=== PATIENT | female | born 1965 | race Caucasian/White ===

== ENCOUNTER → 2018-02-25 | Day surgery (SDC) | payer BC ==
[2018-02-23 16:21] VITALS: BMI 39.5
[~2018-02-25] MED LIST: LACTATED RINGERS 1,000 ML IV ONE; LIDOCAINE 1% 20 ML VIAL (10MG/ML) FOR IV START INTRADERMA ONE; LIDOCAINE 1% INJ 10MG/ML (20 ML MDV) ONE; PROPOFOL 10 MG/ML 20 ML VIAL IV ONE
--- NOTE | 2018-02-25 05:50 | P.GSHP ---
History of Present Illness H&P Date: 02/25/18 CHIEF COMPLAINT: GERD HISTORY OF PRESENT ILLNESS: The patient is a 52-year-old female who presents reports gastroesophageal reflux disease. Upper endoscopy was offered for further evaluation and management. PAST MEDICAL HISTORY: Please see list. PAST SURGICAL HISTORY: Please see list. MEDICATIONS: Please see list. ALLERGIES: Please see list. SOCIAL HISTORY: No illicit drug use FAMILY HISTORY: No reports of Crohn disease or ulcerative colitis. REVIEW OF ORGAN SYSTEMS: CONSTITUTIONAL: No reports of fevers or chills. GI: Denies any blood in stools or constipation. PHYSICAL EXAM: VITAL SIGNS: Stable GENERAL: Well-developed and pleasant in no acute distress. HEENT: No scleral icterus. Extraocular movements grossly intact. Moist buccal mucosa. NECK: Supple without lymphadenopathy. CHEST: Unlabored respirations. Equal bilateral excursions. CARDIOVASCULAR: Regular rate and rhythm. Distal 2+ pulses. ABDOMEN: Soft, nondistended. MUSCULOSKELETAL: No clubbing, cyanosis, or edema. ASSESSMENT: 1. Gastroesophageal reflux disease PLAN: 1. Recommend proceeding with an upper endoscopy Past Medical History Past Medical History: GERD/Reflux, Hypertension Additional Past Medical History / Comment(s): seasonal allergies History of Any Multi-Drug Resistant Organisms: None Reported Past Surgical History: Appendectomy, Back Surgery, Hysterectomy Additional Past Surgical History / Comment(s): Colonoscopy; EGD; D&C Past Anesthesia/Blood Transfusion Reactions: No Reported Reaction Smoking Status: Never smoker - Past Family History Mother Family Medical History: No Reported History Medications and Allergies Home Medications Medication Instructions Recorded Confirmed Type Azelastine HCl [Astepro] 137 mcg NASAL BID 02/23/18 02/23/18 History Esomeprazole Magnesium [NexIUM] 20 mg PO DAILY 02/23/18 02/23/18 History Evening [place] Oil 500 mg PO DAILY 02/23/18 02/23/18 History Loratadine [Claritin] 10 mg PO DAILY 02/23/18 02/23/18 History Metoprolol Succinate [Toprol Xl] 50 mg PO DAILY 02/23/18 02/23/18 History Venlafaxine HCl ER [Effexor Xr] 150 mg PO DAILY 02/23/18 02/23/18 History
[2018-02-25 08:56] VITALS: TEMP 98.2
--- NOTE | 2018-02-25 09:27 | P.PCN ---
Date of Procedure: 02/25/18 Description of Procedure: PREOPERATIVE DIAGNOSIS: Gastroesophageal reflux disease. Morbid obesity. POSTOPERATIVE DIAGNOSIS: Morbid obesity. Gastritis. Gastroesophageal reflux disease. Diaphragmatic hiatal hernia OPERATION: Esophagogastroduodenoscopy with biopsies along antrum. SURGEON: Carmina Cohen MD ANESTHESIA: MAC. INDICATIONS: The patient is a 52-year-old female who presents with a history of reflux disease. Benefits and risks of the procedure were described. Informed consent was obtained. DESCRIPTION: The patient was brought into the endoscopy suite and laid in the left lateral decubitus position. An Olympus gastroscope was passed along the posterior oropharynx down to the distal esophagus where the squamocolumnar junction was encountered at 40 cm from the incisors. The stomach was entered and no bile reflux was found. Additional findings are listed below. Biopsies with cold forceps were obtained of the antrum. The first through third portion of the duodenum was examined and unremarkable. Retroflexion of the scope confirmed Hill grade 4 lower esophageal valve. The squamocolumnar junction demonstrated LA grade B erosive esophagitis. The stomach was desufflated. The patient tolerated the procedure well. FINDINGS: Squamocolumnar junction 35 cm from the incisors. Diaphragmatic hiatus at 40 cm. Hiatal hernia, 5 cm Hill grade 4 lower esophageal valve. LA grade B erosive esophagitis. No active duodenitis. Chronic gastritis RECOMMENDATIONS: Upper endoscopy as needed. Plan - Discharge Summary New Discharge Prescriptions: No Action Venlafaxine HCl ER [Effexor Xr] 150 mg PO DAILY Metoprolol Succinate [Toprol Xl] 50 mg PO DAILY Loratadine [Claritin] 10 mg PO DAILY Esomeprazole Magnesium [NexIUM] 20 mg PO DAILY Azelastine HCl [Astepro] 137 mcg NASAL BID Evening [place] Oil 500 mg PO DAILY Discharge Medication List Azelastine HCl [Astepro] 137 mcg NASAL BID 02/23/18 [History] Esomeprazole Magnesium [NexIUM] 20 mg PO DAILY 02/23/18 [History] Evening [place] Oil 500 mg PO DAILY 02/23/18 [History] Loratadine [Claritin] 10 mg PO DAILY 02/23/18 [History] Metoprolol Succinate [Toprol Xl] 50 mg PO DAILY 02/23/18 [History] Venlafaxine HCl ER [Effexor Xr] 150 mg PO DAILY 02/23/18 [History]
[2018-02-25 10:05] VITALS: BP 142/95; PULSE 65; RESP 18
== END | disposition home or self-care (01) ==
LOC: ORWHC2ENDO 08:11
PROVIDERS: ATTEND Surgery Plastic and Reconstructive Surgery
DX: K22.10 Ulcer of esophagus without bleeding (principal); K29.50 Unspecified chronic gastritis without bleeding; K44.9 Diaphragmatic hernia without obstruction or gangrene; K21.9 Gastro-esophageal reflux disease without esophagitis; I10 Essential (primary) hypertension; E66.01 Morbid (severe) obesity due to excess calories; Z68.39 Body mass index [BMI] 39.0-39.9, adult; Z88.7 Allergy status to serum and vaccine
CPT/HCPCS: 88305; 43239; J2001; J2704

== ENCOUNTER → 2018-06-16 | Outpatient (CLI) | payer BC ==
--- NOTE | 2018-06-22 10:19 | MM ---
Reason for exam: screening (asymptomatic). Last mammogram was performed 1 year and 1 month ago. History: Patient is postmenopausal and is nulliparous. Family history of breast cancer in mother at age 70. Physical Findings: A clinical breast exam by your physician is recommended on an annual basis and results should be correlated with mammographic findings. MG 3D Screening Mammo W/Cad Bilateral CC and MLO view(s) were taken. Prior study comparison: May 29, 2017, mammogram, performed at [facility]. May 28, 2016, mammogram, performed at [facility]. The breast tissue is heterogeneously dense. This may lower the sensitivity of mammography. Finding #1: There is a 12 mm obscured oval mass in the lower outer quadrant, posterior middle position of the left breast on MLO () and CC (). Finding #2: There are typically benign round calcifications in both breasts. New finding since May 29, 2017 and May 28, 2016. ASSESSMENT: Incomplete: need additional imaging evaluation, BI-RAD 0 RECOMMENDATION: Ultrasound of the left breast. [facility] will attempt to contact patient to return for ultrasound.
== END ==
LOC: RADMAMWWP 13:04
PROVIDERS: ATTEND Pediatrics
DX: Z12.31 Encounter for screening mammogram for malignant neoplasm of breast (principal)
CPT/HCPCS: 77063; 77067

== ENCOUNTER → 2018-07-03 | Outpatient (CLI) | payer BC ==
--- NOTE | 2018-07-06 08:25 | USB ---
Reason for exam: additional evaluation requested from abnormal screening. History: Patient is postmenopausal and is nulliparous. Family history of breast cancer in mother at age 70. Physical Findings: Nurse did not find any significant physical abnormalities on exam. US Breast Workup Limited LT Left limited breast ultrasound including focal area of concern, retroareolar and axilla demonstrates a 0.8 x 0.3 x 0.8cm oval, cystic lesion at 4 o'clock. These results were verbally communicated with the patient and result sheet given to the patient on 07/03/18. ASSESSMENT: Probably benign, BI-RAD 3 RECOMMENDATION: Follow-up diagnostic mammogram and ultrasound of the left breast in 6 months.
== END | disposition home or self-care (01) ==
LOC: RADUSWWP 15:06
PROVIDERS: ATTEND Pediatrics
DX: R92.8 Other abnormal and inconclusive findings on diagnostic imaging of breast (principal)

== ENCOUNTER → 2019-05-25 | Outpatient (CLI) | payer BC ==
--- NOTE | 2019-05-25 13:53 | MM ---
Reason for exam: additional evaluation requested from prior study. Last mammogram was performed 11 months ago. History: Patient is postmenopausal and is nulliparous. Family history of breast cancer in mother at age 70. Physical Findings: Nurse did not find any significant physical abnormalities on exam. MG 3D Diag Mammo W/Cad INA Bilateral CC and MLO view(s) were taken. Prior study comparison: June 16, 2018, bilateral MG 3d screening mammo w/cad. May 29, 2017, mammogram, performed at [facility]. The 14mm left upper outer quadrant mass on the prior of 06/16/18 now measures 9mm, smaller cyst. No suspicious abnormality. No significant new findings when compared with previous films. These results were verbally communicated with the patient and result sheet given to the patient on 05/25/19. ASSESSMENT: Benign, BI-RAD 2 RECOMMENDATION: Return to routine screening mammogram schedule for both breasts.
== END | disposition home or self-care (01) ==
LOC: RADMAMWWP 13:03
PROVIDERS: ATTEND Pediatrics
DX: R92.8 Other abnormal and inconclusive findings on diagnostic imaging of breast (principal)
CPT/HCPCS: 77062; 77066

== ENCOUNTER → 2021-07-06 | Outpatient (CLI) | payer BC ==
--- NOTE | 2021-07-09 11:09 | MM ---
Reason for exam: screening (asymptomatic). Last mammogram was performed 2 years and 1 month ago. History: Patient is postmenopausal and is nulliparous. Family history of breast cancer in mother at age 70. Physical Findings: A clinical breast exam by your physician is recommended on an annual basis and results should be correlated with mammographic findings. MG 3D Screening Mammo W/Cad Bilateral CC, MLO, and XCCL view(s) were taken. Prior study comparison: May 25, 2019, bilateral MG 3d diag mammo w/cad INA. June 16, 2018, bilateral MG 3d screening mammo w/cad. The breast tissue is heterogeneously dense. This may lower the sensitivity of mammography. There is no discrete abnormality. No significant changes when compared with prior studies. ASSESSMENT: Negative, BI-RAD 1 RECOMMENDATION: Routine screening mammogram of both breasts in 1 year.
== END | disposition home or self-care (01) ==
LOC: RADMAMWWP 07:22
PROVIDERS: ATTEND Pediatrics
DX: Z12.31 Encounter for screening mammogram for malignant neoplasm of breast (principal)
CPT/HCPCS: 77063; 77067

== ENCOUNTER 2023-03-26 14:45 | Observation (INO) | payer BC ==
--- NOTE | 2023-03-26 15:37 | XR ---
EXAMINATION TYPE: XR chest 2V DATE OF EXAM: 03/26/2023 COMPARISON: NONE TECHNIQUE: PA and lateral views submitted. HISTORY: Chest pain FINDINGS: The lungs are clear and there is no pneumothorax, pleural effusion, or focal pneumonia. Heart size normal and no overt failure. Osseous structures demonstrate hypertrophic and degenerative changes of the spine. Limited inspiration IMPRESSION: 1. No acute process.
[2023-03-26 15:43] LABS: Basophils % (A) 0 %; Eosinophils # (A) 0.3 k/uL (0-0.7); Eosinophils % (A) 4 %; HCT 42.5 % (34.0-46.0); Lymphocytes % (A) 28 %; MCH 30.9 pg (25.0-35.0); MCHC 33.1 g/dL (31.0-37.0); MCV 93.5 fL (80.0-100.0); Mean Platelet Volume 8.1; Monocytes # (A) 0.4 k/uL (0-1.0); Monocytes % (A) 6 %; Neutrophils # (A) 4.4 k/uL (1.3-7.7); Neutrophils % (A) 61 %; Platelet Count 246 k/uL (150-450); RBC 4.54 m/uL (3.80-5.40); RDW 12.3 % (11.5-15.5); WBC 7.2 k/uL (3.8-10.6)
[2023-03-26 15:52] LABS: ALT 27 U/L (4-34); AST 27 U/L (14-36); African American GFR (CKD) >90 (>60 ml/min/1.73 sqM); Albumin 4.4 g/dL (3.5-5.0); Alkaline Phosphatase 98 U/L (38-126); Anion Gap 11 mmol/L; Blood Urea Nitrogen 10 mg/dL (7-17); Calcium 9.8 mg/dL (8.4-10.2); Carbon Dioxide 25 mmol/L (22-30); Chloride 102 mmol/L (98-107); Glucose 99 mg/dL (74-99); Non-African American GFR(CKD) >90 (>60 ml/min/1.73 sqM); Potassium 4.5 mmol/L (3.5-5.1); Sodium 138 mmol/L (137-145); Total Bilirubin 0.6 mg/dL (0.2-1.3); Total Protein 7.5 g/dL (6.3-8.2)
--- NOTE | 2023-03-26 15:54 | CT ---
EXAMINATION TYPE: CT brain wo con DATE OF EXAM: 03/26/2023 COMPARISON: None available. HISTORY: Weakness. CT DLP: 1148.9 mGycm Automated exposure control for dose reduction was used. FINDINGS: There is no acute intracranial hemorrhage, mass, mass effect, midline shift, extra-axial fluid collec tion or hydrocephalus. The farnsworth-white distinction is intact without evidence of an acute major vessel infarct. The visualized paranasal sinuses and mastoid air cells are clear. IMPRESSION: No acute intracranial process.
[2023-03-26 16:00] LABS: NT-Pro-B-Type Natriuretic Pept 41 pg/mL
[2023-03-26] MEDS ORDERED: ASPIRIN 81 MG PO STA (18:36)
[2023-03-26] MEDS ORDERED: NALOXONE 0.4 MG/ML 1 ML VIAL IV PRN (18:37)
[2023-03-26] MEDS: SODIUM CHLORIDE 0.9% 1,000 ML IV SCH (18:52)
--- NOTE | 2023-03-26 18:53 | ED ---
Chest Pain HPI - General Chief Complaint: Chest Pain Stated Complaint: Chest Pain,sob Time Seen by Provider: 03/26/23 15:01 Source: patient Mode of arrival: ambulatory Limitations: no limitations - History of Present Illness Initial Comments: Patient is a 57 yr old female who is a nonsmoker but has a history of hypertension, hyperlipidemia and diabetes presents emergency room with complaints of chest pain or shortness breath. Patient complains of a heaviness in her chest intermittently for the last 2-3 days. She states it is worse with exertion. Patient has radiating pain down the left arm intermittently as well and states that yesterday at work it felt heavy. She states she will dropped a pot she was holding and did at one point drop a muffin because it felt so weak. She denies any other focal deficits. She denies any history of TIA or CVA however does have a history of migraines. Patient is unsure of her family's cardiac history that she has never had a history of coronary artery disease or MIs. - Related Data Home Medications Medication Instructions Recorded Confirmed Esomeprazole Magnesium [NexIUM] 20 mg PO HS 02/23/18 03/26/23 Amitriptyline HCl [Elavil] 50 mg PO HS 03/26/23 03/26/23 Atorvastatin [Lipitor] 40 mg PO HS 03/26/23 03/26/23 Venlafaxine HCl ER [Effexor Xr] 75 mg PO HS 03/26/23 03/26/23 Allergies Allergy/AdvReac Type Severity Reaction Status Date / Time Tetanus Vaccines and Toxoid Allergy Unknown Verified 03/26/23 16:46 Childhood Review of Systems ROS Statement: Those systems with pertinent positive or pertinent negative responses have been documented in the HPI. ROS Other: All systems not noted in ROS Statement are negative. EKG Findings - EKG Comments: EKG Findings:: EKG shows sinus rhythm at a rate of 72 bpm, non-'s specific EKG changes, no acute ST segment elevation, QT interval 435 ms Past Medical History Past Medical History: Diabetes Mellitus, GERD/Reflux, Hypertension Additional Past Medical History / Comment(s): seasonal allergies History of Any Multi-Drug Resistant Organisms: None Reported Past Surgical History: Appendectomy, Back Surgery, Hysterectomy Additional Past Surgical History / Comment(s): Colonoscopy; EGD; D&C Past Anesthesia/Blood Transfusion Reactions: No Reported Reaction Past Psychological History: Anxiety Past Alcohol Use History: None Reported Past Drug Use History: None Reported - Past Family History Mother Family Medical History: No Reported History General Exam Limitations: no limitations General appearance: alert, in no apparent distress Head exam: Present: atraumatic Eye exam: Present: normal appearance ENT exam: Present: normal exam Neck exam: Present: normal inspection, full ROM Respiratory exam: Present: normal lung sounds bilaterally Cardiovascular Exam: Present: regular rate, normal rhythm Extremities exam: Present: full ROM Back exam: Present: full ROM Neurological exam: Present: alert, oriented X3, CN II-XII intact, other (NIH completed by myself and is 0. No focal deficits) Expanded Patient oriented to: Present: person, place, time Speech: Present: fluid speech Cerebellar function: Finger to Nose: Normal, Heel to Landry: Normal Upper motor neuron: Flynn Neglect: Normal, Pronator Drift: Normal, Babinski Sign: Normal Sensory exam: Upper Extremity Light Touch: Normal, Upper Extremity Pin Prick: Normal, Upper Extremity Temperature: Normal Psychiatric exam: Present: normal affect, normal mood Skin exam: Present: warm, dry (NIH 0 completed by myself, no pronator drift, negative [id number] and [id number] tests, speech intact no facial droop) Course Vital Signs 03/26/23 03/26/23 03/26/23 14:50 15:17 15:20 Temperature 98.2 F Pulse Rate 90 86 Pulse Rate [ 87 Airframe And Powerplant Technician ] Respiratory 16 19 Rate Blood Pressure 171/110 148/89 O2 Sat by Pulse 100 99 Oximetry 03/26/23 03/26/23 03/26/23 16:11 16:14 17:04 Temperature 98.0 F Pulse Rate 76 73 Pulse Rate [ Airframe And Powerplant Technician ] Respiratory 20 18 Rate Blood Pressure 162/89 149/84 O2 Sat by Pulse 99 98 Oximetry 03/26/23 18:06 Temperature 98.1 F Pulse Rate 77 Pulse Rate [ Airframe And Powerplant Technician ] Respiratory 18 Rate Blood Pressure 153/90 O2 Sat by Pulse 98 Oximetry - Reevaluation(s) Reevaluation #1: 03/26/23 1801 The patient is well-appearing emergency room. No acute changes seen on the EKG and troponin is negative. She was given aspirin upon negative head CT. I discussed admission for cardiac evaluation with the patient as well as a TIA rule out for the left upper extremity weakness. NIH again was completed by myself upon arrival emergency room and was 0. Chest Pain MDM - MDM Was pt. sent in by a medical professional or institution (MIGUEL Butler, PRACTICAL NURSING INSTRUCTOR, urgent care, hospital, or [facility]...) When possible be specific @ -[No] Did you speak to anyone other than the patient for history (EMS, parent, family, police, friend...)? What history was obtained from this source @ - at bedside Did you review nursing and triage notes (agree or disagree)? Why? @ -[I reviewed and agree with nursing and triage notes] Were old charts reviewed (outside hosp., previous admission, EMS record, old EKG, old radiological studies, urgent care reports/EKG's, [facility] records)? Report findings @ -External medication records Differential Diagnosis (chest pain, altered mental status, abdominal pain women, abdominal pain men, vaginal bleeding, weakness, fever, dyspnea, syncope, headache, dizziness, GI bleed, back pain, seizure, CVA, palpatations, mental health, musculoskeletal)? @ -OH, angina, unstable angina, TIA, CVA EKG interpreted by me (3pts min.). @ -Head CT shows sinus rhythm at a rate of 72 bpm nonspecific changes no acute ST segment elevation, normal QT intervals at 435 ms X-rays interpreted by me (1pt min.). @ -X-rays negative for any pneumonia cardiomegaly or other acute changes CT interpreted by me (1pt min.). @ -Head CT is negative for any mass hemorrhage or other acute changes U/S interpreted by me (1pt. min.). @ -[None done] What testing was considered but not performed or refused? (CT, X-rays, U/S, labs)? Why? @ -[None] What meds were considered but not given or refused? Why? @ -[None] Did you discuss the management of the patient with other professionals (professionals i.e. MIGUEL Butler, PRACTICAL NURSING INSTRUCTOR, lab, RT, psych nurse, social media community manager, fence repairman, teacher, booking police officer, rn field case manager)? Give summary @ -I discussed admission for cardiac evaluation and TIA rule out with the nurse practitioner with the [facility]. Patient care will be transferred to the hospitalist group at this time. Was smoking cessation discussed for >3mins.? @ -[No] Was critical care preformed (if so, how long)? @ -[No] Were there social determinants of health that impacted care today? How? (Homelessness, low income, unemployed, alcoholism, drug addiction, transportation, low edu. Level, literacy, decrease access to med. care, nursing home, rehab)? @ -[No] Was there de-escalation of care discussed even if they declined (Discuss DNR or withdrawal of care, Hospice)? DNR status @ -[No] What co-morbidities impacted this encounter? (DM, HTN, Smoking, COPD, CAD, Cancer, CVA, ARF, Chemo, Hep., AIDS, mental health diagnosis, sleep apnea, morbid obesity)? @ -Hypertension, hyperlipidemia, diabetes Was patient admitted / discharged? Hospital course, mention meds given and route, prescriptions, significant lab abnormalities, going to OR and other pertinent info. @ -Yes I did discuss hospital admission for cardiac evaluation and TIA rule out with the patient has been at the bedside. Patient will be admitted under the care of the [facility] hospitalist group for admission Undiagnosed new problem with uncertain prognosis? @ -[No] Drug Therapy requiring intensive monitoring for toxicity (Heparin, Nitro, Insulin, Cardizem)? @ -[No] Were any procedures done? @ -[No] Diagnosis/symptom? @ -Chest pain, dyspnea, left upper extremity weakness, TIA rule out Acute, or Chronic, or Acute on Chronic? @ -Acute Uncomplicated (without systemic symptoms) or Complicated (systemic symptoms)? @ -Complicated Side effects of treatment? @ -[No] Exacerbation, Progression, or Severe Exacerbation? @ -[No] Poses a threat to life or bodily function? How? (Chest pain, [place], [place], pneumonia, PE, COPD, DKA, ARF, appy, cholecystitis, CVA, Diverticulitis, Homicidal, Suicidal, threat to staff... and all critical care pts) @ -[No] Disposition Clinical Impression: Dyspnea, Neurological complaint Disposition: ADMITTED IP TO THIS [facility] Condition: Fair Referrals: Jayesh Hilario MD [Primary Care Provider] - 1-2 days Decision to Admit Reason: Admit from EC Decision Time: 18:42
[2023-03-26 19:31] LABS: Creatine Kinase MB 0.8 ng/mL (0.0-3.4)
[2023-03-26] MEDS ORDERED: CALCIUM CARBONATE 500 MG CHEWABLE PO PRN (22:22)
[2023-03-26] MEDS ORDERED: MAG HYDROX/AL HYDROX/SIMETH 30 ML CUP PO PRN (22:22)
[2023-03-26] MEDS ORDERED: ONDANSETRON 4 MG/2 ML VIAL IVP PRN (22:23)
[2023-03-26] MEDS: PANTOPRAZOLE 40 MG TABLET PO SCH (22:42)
[2023-03-26] MEDS: ATORVASTATIN 40 MG TAB PO SCH (22:42)
[2023-03-26] MEDS: ACETAMINOPHEN TAB 325 MG TAB PO PRN (22:42)
[2023-03-27] MEDS: VENLAFAXINE HCL ER 75 MG CAP PO SCH ×2 (00:04→22:26)
[2023-03-27] MEDS: AMITRIPTYLINE HCL 50 MG TAB PO SCH ×2 (00:04→22:26)
[2023-03-27] MEDS: SODIUM CHLORIDE 0.9% 1,000 ML IV SCH ×3 (08:06→22:27)
[2023-03-27] MEDS: PANTOPRAZOLE 40 MG TABLET PO SCH (08:06)
--- NOTE | 2023-03-27 08:31 | P.CRDCN ---
History of Present Illness Consult date: 03/27/23 Consult reason: chest pain History of present illness: History of present illness: This is a 57-year-old female with no previous cardiac history, does not follow with filler in. She has a past medical history of hyperlipidemia, gastroesophageal reflux disease. We have been asked to evaluate for chest pain. Patient states that she had heaviness in her chest starting in the left upper chest area went into her left arm and left hand and she states she was holding onto a month and it fell out of her hand. She's never had this sensation before. She did have chest pain about 10 years ago and was seen at [facility] and had an echocardiogram done and was discharged. She works in the grocery store lifting groceries and start in the last time was on Friday and she had no chest pain develop at the time of activity. She denies history of smoking, no alcohol use and no illicit drug use. No family history of coronary artery disease. Patient is seen today in the emergency center waiting for a bed on the observation unit. EKG no acute changes Chest x-ray: No acute findings CBC, CMP, d-dimer all within normal limits. Troponin negative 3 Home cardiac medications: Atorvastatin 40 mg at bedtime. Review Of Systems: At the time of my evaluation: Constitutional: No fever, no chills. No weakness, fatigue or lethargy. EENT: No headache. No dizziness. Lungs: No shortness of breath, cough, no sputum production. No wheezing. Cardiovascular: No chest pain, no lower extremity edema. No palpitations. No paroxysmal nocturnal dyspnea. No orthopnea. No lightheadedness or dizziness. No syncopal episodes. Abdominal: No abdominal pain. No nausea, vomiting. No diarrhea. No constipation. No bloody or tarry stools. Genitourinary: No dysuria.. No urinary retention. Musculoskeletal: No myalgias. No muscle weakness, no frequent falls. No back pain. No neck pain. Integumentary: No wounds. No rash. No unusual bruising. Neurologic: No aphasia. No facial droop. No change in mentation. No head injury. No headache. Physical examination: Gen: This is a 57-year-old female. She is resting on ER stretcher and appears to be comfortable. VS: reviewed HEENT: Head is atraumatic, normocephalic. Pupils equal, round. Sclerae is anicteric. NECK: Supple. No JVD. . LUNGS: Clear to auscultation. No wheezes or rhonchi. No intercostal retractions. HEART: Regular rate and rhythm. No murmur. ABDOMEN: Soft No tenderness. EXTREMITIES: No pedal edema. No calf tenderness. NEUROLOGICAL: Patient is awake, alert and oriented x3. Assessment: Atypical chest pain Hyperlipidemia Gastroesophageal reflux disease Plan: Resume atorvastatin Obtain exercise stress echocardiogram today Obtain 2-D echocardiogram and Doppler study to assess cardiac structure and function If testing is unremarkable, patient is cleared for discharge home. Thank you kindly for this consultation. Nurse practitioner note has been reviewed, I agree with documented findings and plan of care. Patient was seen and examined. Past Medical History Past Medical History: Diabetes Mellitus, GERD/Reflux, Hypertension Additional Past Medical History / Comment(s): seasonal allergies History of Any Multi-Drug Resistant Organisms: None Reported Past Surgical History: Appendectomy, Back Surgery, Hysterectomy Additional Past Surgical History / Comment(s): Colonoscopy; EGD; D&C Past Anesthesia/Blood Transfusion Reactions: No Reported Reaction Past Psychological History: Anxiety Smoking Status: Never smoker Past Alcohol Use History: None Reported Past Drug Use History: None Reported - Past Family History Mother Family Medical History: No Reported History Medications and Allergies Home Medications Medication Instructions Recorded Confirmed Type Esomeprazole Magnesium [NexIUM] 20 mg PO HS 02/23/18 03/26/23 History Amitriptyline HCl [Elavil] 50 mg PO HS 03/26/23 03/26/23 History Atorvastatin [Lipitor] 40 mg PO HS 03/26/23 03/26/23 History Venlafaxine HCl ER [Effexor Xr] 75 mg PO HS 03/26/23 03/26/23 History Allergies Allergy/AdvReac Type Severity Reaction Status Date / Time Tetanus Vaccines and Toxoid Allergy Unknown Verified 03/26/23 16:46 Childhood Physical Exam Vitals: Vital Signs Temp Pulse Pulse Resp BP BP Pulse Ox 03/27/23 02:00 76 17 127/81 95 03/26/23 21:00 102 H 18 116/77 97 03/26/23 19:30 93 18 140/88 96 03/26/23 19:02 63 19 144/85 95 03/26/23 18:06 98.1 F 77 18 153/90 98 03/26/23 17:04 73 18 149/84 98 03/26/23 16:14 98.0 F 03/26/23 16:11 76 20 162/89 99 03/26/23 15:20 86 19 148/89 99 03/26/23 15:17 87 03/26/23 14:50 98.2 F 90 16 171/110 100 Intake and Output 03/26/23 03/27/23 03/27/23 22:59 06:59 14:59 Other: Voiding Method Toilet Toilet # Voids 1 Weight 99.337 kg Results 03/26/23 15:06 03/26/23 15:06 Cardiac Enzymes 03/26/23 03/26/23 03/26/23 Range/Units 15:06 15:06 16:51 AST 27 (14-36) U/L CK-MB (CK-2) (0.0-3.4) ng/mL Troponin I <0.012 <0.012 (0.000-0.034) ng/mL 03/26/23 03/26/23 03/27/23 Range/Units 18:48 19:32 00:24 AST (14-36) U/L CK-MB (CK-2) 0.8 (0.0-3.4) ng/mL Troponin I <0.012 <0.012 (0.000-0.034) ng/mL CBC 03/26/23 Range/Units 15:06 WBC 7.2 (3.8-10.6) k/uL RBC 4.54 (3.80-5.40) m/uL Hgb 14.0 (11.4-16.0) gm/dL Hct 42.5 (34.0-46.0) % Plt Count 246 (150-450) k/uL Comprehensive Metabolic Panel 03/26/23 Range/Units 15:06 Sodium 138 (137-145) mmol/L Potassium 4.5 (3.5-5.1) mmol/L Chloride 102 (98-107) mmol/L Carbon Dioxide 25 (22-30) mmol/L BUN 10 (7-17) mg/dL Creatinine 0.63 (0.52-1.04) mg/dL Glucose 99 (74-99) mg/dL Calcium 9.8 (8.4-10.2) mg/dL AST 27 (14-36) U/L ALT 27 (4-34) U/L Alkaline Phosphatase 98 (38-126) U/L Total Protein 7.5 (6.3-8.2) g/dL Albumin 4.4 (3.5-5.0) g/dL Current Medications Generic Name Dose Route Start Last Admin Trade Name Freq PRN Reason Stop Dose Admin Acetaminophen 650 mg 03/26/23 22:23 03/26/23 22:42 Acetaminophen Tab 325 Mg Tab PO 650 mg Q6HR PRN Administration Fever and/ or Pain Al Hydroxide/Mg Hydroxide 20 ml 03/26/23 22:22 Mag Hydrox/Al Hydrox/Simeth 30 Ml Cup PO QID PRN Heartburn Amitriptyline HCl 50 mg 03/26/23 22:30 03/27/23 00:04 Amitriptyline Hcl 50 Mg Tab PO Not Given HS REBECCA Atorvastatin Calcium 40 mg 03/26/23 22:30 03/26/23 22:42 Atorvastatin 40 Mg Tab PO 40 mg HS REBECCA Administration Calcium Carbonate/Glycine 500 mg 03/26/23 22:22 03/26/23 22:42 Calcium Carbonate 500 Mg Chewable PO 500 mg QID PRN Administration Heartburn Sodium Chloride 1,000 mls @ 130 mls/hr 03/26/23 18:45 03/26/23 18:52 Saline 0.9% IV 130 mls/hr .[id number] REBECCA Administration Naloxone HCl 0.2 mg 03/26/23 18:37 Naloxone 0.4 Mg/Ml 1 Ml Vial IV Q2M PRN Opioid Reversal Ondansetron HCl 4 mg 03/26/23 22:23 Ondansetron 4 Mg/2 Ml Vial IVP Q6HR PRN Nausea And Vomiting Pantoprazole Sodium 40 mg 03/26/23 22:30 03/26/23 22:42 Pantoprazole 40 Mg Tablet PO 40 mg [id number] REBECCA Administration Venlafaxine HCl 75 mg 03/26/23 22:30 03/27/23 00:04 Venlafaxine Hcl Er 75 Mg Cap PO 75 mg HS REBECCA Administration Intake and Output 03/26/23 03/27/23 03/27/23 22:59 06:59 14:59 Other: Voiding Method Toilet Toilet # Voids 1 Weight 99.337 kg 03/26/23 15:06 03/26/23 15:06
[2023-03-27] MEDS: ACETAMINOPHEN TAB 325 MG TAB PO PRN ×2 (09:48→22:26)
[2023-03-27] MEDS ORDERED: LORazepam 2 MG/ML INJ IV STA (10:39)
[2023-03-27 11:11] LABS: Basophils # (A) 0.05 X 10*3/uL (0.00-0.10); Basophils % (A) 0.6 %; Eosinophils # (A) 0.38 X 10*3/uL (0.04-0.35); Eosinophils % (A) 4.8 %; HCT 41.2 % (37.2-46.3); Lymphocytes # (A) 2.32 X 10*3/uL (0.90-5.00); Lymphocytes % (A) 29.6 %; MCHC 31.6 g/dL (32.0-37.0); MCV 94.9 FL (80.0-97.0); Mean Platelet Volume 10.8 FL (9.5-12.2); Monocytes # (A) 0.76 X 10*3/uL (0.20-1.00); Monocytes % (A) 9.7 %; NRBC Per 100 WBC 0 X 10*3/uL (0.00-0.01); Neutrophils # (A) 4.32 X 10*3/uL (1.80-7.70); Platelet Count 254 X 10*3/uL (140-440); RBC 4.34 X 10*6/uL (4.10-5.20); RDW 12.6 % (11.5-14.5); WBC 7.85 X 10*3/uL (4.50-10.00)
[2023-03-27 11:36] LABS: BUN/Creat Ratio 12.86 Ratio (12.00-20.00); Calcium 9.4 mg/dL (8.7-10.3); Carbon Dioxide 23.1 mmol/L (21.6-31.8); Chloride 105 mmol/L (96-109); Glucose 102 mg/dL (70-110); Potassium 4.1 mmol/L (3.5-5.5); Sodium 139 mmol/L (135-145)
--- NOTE | 2023-03-27 12:27 | CA ---
Stress Echo Report Sofía Meyer Age: 57 Gender: F : 1965 Exam Date: 03/27/2023 11:36 Exam Location: [facility] Ht (in): 66 Wt (lb): 219 Ordering Physician: Jennifer Fish Referring Physician: [id number] Sales Financial Analyst: BOWEN, Technologist Procedure CPT: Indication: CP ICD-9 Codes: Rhythm: Patient History: Chest pain, palpitations and hypertension. Cardiac Medications: Medications in past 24 hours: Contrast: Stress Results Protocol: Jakub Total dose(mL): Exercise Duration (min:sec): Max ST Depression (mm): Angina Score: Germain Score: METS: 3.4 Resting HR: 81 Resting BP: 117 / 63 Peak HR: 165 Peak BP: 182 / 94 Max Predicted HR: 164 101 % Max Predicted HR Target HR: 139 Double Product: [id number] Stress Summary: BP Response: Reason for Termination: Max exertion Cardiac Symptoms: Chest heaviness ECG Analysis Resting ECG: Normal sinus rhythm normal axis normal intervals Stress ECG: Patient exercised on Jakub protocol for 2 minutes achieving 85% of predicted maximal heart rate without chest pain test was stopped secondary to fatigue. No significant ST segment depression was noted Arrhythmia: Echo Analysis Resting Echo: Normal left ventricle a size wall motion systolic function Peak Echo Analysis: Normal hyperdynamic response of all segments of myocardium noted MEASUREMENTS (Male/Female) Normal Values CONCLUSIONS Extremely poor exercise tolerance Negative stress test by EKG criteria Negative stress echo Dr. Jerry Nava MD (Electronically Signed) Final Date: 27 March 2023 12:26
--- NOTE | 2023-03-27 12:29 | CA ---
Transthoracic Echo Report Name: Sofía Meyer Age: 57 Gender: F : 1965 Exam Date: 03/27/2023 10:57 Exam Location: [facility] Ht (in): 66 Wt (lb): 219 Ordering Physician: Coni Guajardo Attending/Referring Phys: Bennett GUADALUPE Mediator Alannah Doll [facility] Procedure CPT: Indications: Chest Pain Cardiac Hx: Technical Quality: Fair Contrast 1: Total Dose (mL): Contrast 2: Total Dose (mL): MEASUREMENTS (Male / Female) Normal Values 2D ECHO LV Diastolic Diameter PLAX 3.9 cm 4.2 - 5.9 / 3.9 - 5.3 cm LV Systolic Diameter PLAX 2.8 cm IVS Diastolic Thickness 1.1 cm 0.6 - 1.0 / 0.6 - 0.9 cm LVPW Diastolic Thickness 1.0 cm 0.6 - 1.0 / 0.6 - 0.9 cm LV Relative Wall Thickness 0.5 LVOT Diameter 2.0 cm Aortic Root Diameter 3.9 cm LA Volume 72.6 cm??? 18 - 58 / 22 - 52 cm??? LA Volume Index 33.1 cm???/m??? 16 - 28 cm???/m??? Ascending Aorta Diameter 3.8 cm M-MODE Aortic Root Diameter MM 3.4 cm LA Systolic Diameter MM 3.7 cm LA Ao Ratio MM 1.1 AV Cusp Separation MM 2.3 cm DOPPLER AV Peak Velocity 133.1 cm/s AV Peak Gradient 7.1 mmHg AV Mean Velocity 91.0 cm/s AV Mean Gradient 3.8 mmHg AV Velocity Time Integral 31.1 cm AI Peak Velocity 378.1 cm/s AI Peak Gradient 57.2 mmHg AI Pressure Half Time 338.8 ms LVOT Peak Velocity 115.4 cm/s LVOT Peak Gradient 5.3 mmHg LVOT Velocity Time Integral 29.3 cm LVOT Stroke Volume 93.2 cm??? LVOT Stroke Volume Index 44.8 ml/m??? LVOT Cardiac Index 3020.0 cm???/min???m??? AV Area Cont Eq vti 3.0 cm??? AV Area Cont Eq pk 2.8 cm??? MV Area PHT 4.6 cm??? Mitral E Point Velocity 87.8 cm/s Mitral A Point Velocity 78.9 cm/s Mitral E to A Ratio 1.1 MV Deceleration Time 166.3 ms LV E' Lateral Velocity 10.4 cm/s Mitral E to LV E' Lateral Ratio 8.5 LV E' Septal Velocity 6.5 cm/s Mitral E to LV E' Septal Ratio 13.5 Right Atrial Pressure 3.0 mmHg FINDINGS Left Ventricle Mildly increased septal wall thickness. Mildly increased posterior wall thickness. Left ventricular cavity size normal. Normal left ventricular systolic function with no obvious regional wall motion abnormalities. Left ventricular ejection fraction is estimated at 55-60%. Right Ventricle Moderately increased basal right ventricular diameter. Unable to estimate the right ventricular systolic pressure. Right Atrium Normal right atrial size. Left Atrium Moderate left atrial dilatation. Mildly increased left atrial volume. Mildly increased left atrial area. Mitral Valve Structurally normal mitral valve. No mitral regurgitation. Aortic Valve Trileaflet aortic valve. Mild aortic regurgitation. Tricuspid Valve Structurally normal tricuspid valve. No tricuspid regurgitation. Pulmonic Valve Structurally normal pulmonic valve. Trace pulmonic regurgitation. Pericardium No pericardial effusion. Aorta Mild aortic dilatation at the level of the sinuses of valsalva (root). Upper normal proximal ascending aorta (tube). CONCLUSIONS Normal LV function Previewed by: Dr. Jerry Nava MD (Electronically Signed) Final Date: 27 March 2023 12:29
[2023-03-27] MEDS ORDERED: traMADol 50 MG TAB PO PRN (12:32)
[2023-03-27] MEDS ORDERED: KETOROLAC 15 MG/ML 1 ML VIAL IVP PRN (12:34)
[2023-03-27 13:05] LABS: Glucose,Whole Blood 109 mg/dL (70-110)
--- NOTE | 2023-03-27 13:09 | P.HPIM ---
History of Present Illness Patient is pleasant 57-year-old female mainly admitted for rule out acute causes syndromes. Patient came in with the chest pain nonexertional appears to be atypical without any lightheadedness diaphoresis patient was also complaining of cervical and thoracic spine pain as well as some pain in the left axilla and weakness in the left hand. Patient denied any tingling numbness, denied any other weakness. Neurology was consulted as well. Patient underwent stress test no abnormality was appreciated but patient will didn't do well on the stresses because of which cardiology is recommending monitoring until tomorrow. Patient had an echocardiogram which was within normal limits. Denied any smoking history. REVIEW OF SYSTEMS: CONSTITUTIONAL: No fever, no malaise, no fatigue. HEENT: No recent visual problems or hearing problems. Denied any sore throat. CARDIOVASCULAR: No chest pain, orthopnea, PND, no palpitations, no syncope. PULMONARY: No shortness of breath, no cough, no hemoptysis. GASTROINTESTINAL: No diarrhea, no nausea, no vomiting, no abdominal pain. NEUROLOGICAL: No headaches, no weakness, no numbness. HEMATOLOGICAL: Denies any bleeding or petechiae. GENITOURINARY: Denies any burning micturition, frequency, or urgency. MUSCULOSKELETAL/RHEUMATOLOGICAL: Denies any joint pain, swelling, or any muscle pain. ENDOCRINE: Denies any polyuria or polydipsia. The rest of the 14-point review of systems is negative. PHYSICAL EXAMINATION: GENERAL: The patient is alert and oriented x3, not in any acute distress. Well developed, well nourished. HEENT: Pupils are round and equally reacting to light. EOMI. No scleral icterus. No conjunctival pallor. Normocephalic, atraumatic. No pharyngeal erythema. No thyromegaly. CARDIOVASCULAR: S1 and S2 present. No murmurs, rubs, or gallops. PULMONARY: Chest is clear to auscultation, no wheezing or crackles. ABDOMEN: Soft, nontender, nondistended, normoactive bowel sounds. No palpable organomegaly. MUSCULOSKELETAL: No joint swelling or deformity. EXTREMITIES: No cyanosis, clubbing, or pedal edema. NEUROLOGICAL: Patient has weakness in the left hand without any weakness in the left arm. SKIN: No rashes. Assessment and plan -Chest pain rule out acute causes syndromes patient underwent stress test which was not abnormal with patient the didn't to tolerate stress echo very well because of which cardiology recommended monitoring overnight possibility of acute coronary syndrome is low. Troponins were negative EKG did not show any significant abnormality -Left hand weakness for which patient is undergoing MRI of the head although it appears to have radiculopathy secondary to cervical degenerative disc disease, neurology will evaluate the patient -Lipidemia -Gases esophageal reflux disease DVT prophylaxis: Ambulation Past Medical History Past Medical History: Diabetes Mellitus, GERD/Reflux, Hypertension Additional Past Medical History / Comment(s): seasonal allergies History of Any Multi-Drug Resistant Organisms: None Reported Past Surgical History: Appendectomy, Back Surgery, Hysterectomy Additional Past Surgical History / Comment(s): Colonoscopy; EGD; D&C Past Anesthesia/Blood Transfusion Reactions: No Reported Reaction Past Psychological History: Anxiety Smoking Status: Never smoker Past Alcohol Use History: None Reported Past Drug Use History: None Reported - Past Family History Mother Family Medical History: No Reported History Medications and Allergies Home Medications Medication Instructions Recorded Confirmed Type Esomeprazole Magnesium [NexIUM] 20 mg PO HS 02/23/18 03/26/23 History Amitriptyline HCl [Elavil] 50 mg PO HS 03/26/23 03/26/23 History Atorvastatin [Lipitor] 40 mg PO HS 03/26/23 03/26/23 History Venlafaxine HCl ER [Effexor Xr] 75 mg PO HS 03/26/23 03/26/23 History Allergies Allergy/AdvReac Type Severity Reaction Status Date / Time Tetanus Vaccines and Toxoid Allergy Unknown Verified 03/26/23 16:46 Childhood Physical Exam Vitals: Vital Signs Temp Pulse Pulse Resp BP BP Pulse Ox 03/27/23 08:10 98.5 F 73 18 139/79 95 03/27/23 02:00 76 17 127/81 95 03/26/23 21:00 102 H 18 116/77 97 03/26/23 19:30 93 18 140/88 96 03/26/23 19:02 63 19 144/85 95 03/26/23 18:06 98.1 F 77 18 153/90 98 03/26/23 17:04 73 18 149/84 98 03/26/23 16:14 98.0 F 03/26/23 16:11 76 20 162/89 99 03/26/23 15:20 86 19 148/89 99 03/26/23 15:17 87 03/26/23 14:50 98.2 F 90 16 171/110 100 Intake and Output 03/26/23 03/27/23 03/27/23 22:59 06:59 14:59 Other: Voiding Method Toilet Toilet # Voids 1 Weight 99.337 kg Results CBC & Chem 7: 03/27/23 07:56 03/27/23 07:56 Labs: Abnormal Lab Results - Last 24 Hours (Table) 03/27/23 Range/Units 07:56 MCHC 31.6 L (32.0-37.0) g/dL Eosinophils # 0.38 H (0.04-0.35) X 10*3/uL Thrombosis Risk Factor Assmnt - Choose All That Apply Each Factor Represents 1 point: Age 41-60 years, Obesity (BMI >25) Other Risk Factors: No Other congenital or acquired thrombophilia - If yes, enter type in comment: No Thrombosis Risk Factor Assessment Total Risk Factor Score: 2 Thrombosis Risk Factor Assessment Level: Low Risk
[2023-03-27] MEDS: PANTOPRAZOLE 40 MG/10 ML VIAL IVP SCH (13:23)
--- NOTE | 2023-03-27 14:18 | P.CNNES ---
History of Present Illness Consult date: 03/27/23 Requesting physician: lEzbieta Koch Reason for Consult: LUE weakness, improved History of Present Illness: Patient is a 57-year-old right-handed female with history of diabetes, in remission, hypertension, hyperlipidemia came to the hospital yesterday at 2:45 PM for headache, left arm weakness and chest pain. Patient states that 2 days ago, on Friday she was at work at 11 AM when she noticed pain in the left arm, pointing to the left anterior axillary fold. It was 6-7/10. She also felt retrosternal chest heaviness. 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 At around 3 PM, she noticed that she was holding a muffin in the left hand and it dropped from her hand. Patient went home and felt weakness in the left arm. She went to sleep at 7 PM. Yesterday, on Friday she woke up and did not feel well, still had chest pain, left armpit pain and left hand weakness. She called in sick. As the symptoms persisted, she decided to come to the ER. Patient states that in the last 2 days, she has been noticing some numbness of the lips, only the left side, upper and lower lip. Patient denies any symptoms with the lower limbs. Denies any slurred speech, or facial droop or problem with the vision. Patient states that she does have history of migraines for over 20 years. Yesterday she had a headache which was somewhat different, but today it has turned into a pressure uncomfortable migraine. It involves the frontal and temporal region in the eyes, 8/10, with nausea but no vomiting. She feels light and noise sensitive. Vital signs on arrival blood pressure 171/110, pulse rate 90, temperature 98.2. Blood test shows normal CBC, CMP, troponin. EKG, chest x-ray are normal. CT head showed no acute process. On my review, there appears to have some bilateral frontal and temporal lobe atrophy more than for patient's age, with some compensatory subdural hygroma noted. Patient has undergone cardiac workup. She was not a candidate for TPA, as her symptoms have been present for about 24 hours. Patient takes Nexium, Effexor XR 75 mg, Lipitor 40 mg and Elavil 50 mg at bedtime. Patient does not take any antiplatelet medication at home. Patient denies any tobacco or alcohol use. She has hypertension, hyperlipidemia. She has history of migraines for over 20 years. Patient became prediabetic about 5 years ago, she started taking metformin 2 years ago. However she lost weight, and her diabetes came in remission. She stopped taking metformin in September 2022. Patient states that she has chronic numbness of the right middle finger for last 1 year since she had ganglionic cyst removed from the right hand. Review of Systems Constitutional: Denies chills, Denies fever Eyes: denies blurred vision, denies diplopia, denies pain Ears: deny: decreased hearing, ear discharge Ears, nose, mouth and throat: Reports headache, Denies vertigo Cardiovascular: Reports chest pain, Denies shortness of breath Respiratory: Denies cough Gastrointestinal: Denies abdominal pain, Denies diarrhea, Denies nausea, Denies vomiting Genitourinary: Denies dysuria, Denies hematuria, Denies urgency Musculoskeletal: Denies low back pain, Denies myalgias, Denies neck pain Integumentary: Denies pruritus, Denies rash Neurological: Reports as per HPI Endocrine: Reports fatigue Past Medical History Past Medical History: Diabetes Mellitus, GERD/Reflux, Hypertension Additional Past Medical History / Comment(s): seasonal allergies History of Any Multi-Drug Resistant Organisms: None Reported Past Surgical History: Appendectomy, Back Surgery, Hysterectomy Additional Past Surgical History / Comment(s): Colonoscopy; EGD; D&C Past Anesthesia/Blood Transfusion Reactions: No Reported Reaction Past Psychological History: Anxiety Smoking Status: Never smoker Past Alcohol Use History: None Reported Past Drug Use History: None Reported - Past Family History Mother Family Medical History: No Reported History Medications and Allergies Home Medications Medication Instructions Recorded Confirmed Type Esomeprazole Magnesium [NexIUM] 20 mg PO HS 02/23/18 03/26/23 History Amitriptyline HCl [Elavil] 50 mg PO HS 03/26/23 03/26/23 History Atorvastatin [Lipitor] 40 mg PO HS 03/26/23 03/26/23 History Venlafaxine HCl ER [Effexor XR] 75 mg PO HS 03/26/23 03/26/23 History Aspirin 81 mg PO DAILY #30 tab 03/28/23 Rx Isosorbide Mononitrate ER [Imdur] 30 mg PO DAILY #30 tab 03/28/23 Rx Naproxen 375 mg PO BID PRN #20 tab 03/28/23 Rx Allergies Allergy/AdvReac Type Severity Reaction Status Date / Time Tetanus Vaccines and Toxoid Allergy Unknown Verified 03/26/23 16:46 Childhood Physical Examination - Vital Signs Vital Signs: Vital Signs Temp Pulse Pulse Resp BP BP Pulse Ox 03/27/23 08:10 98.5 F 73 18 139/79 95 03/27/23 02:00 76 17 127/81 95 03/26/23 21:00 102 H 18 116/77 97 03/26/23 19:30 93 18 140/88 96 03/26/23 19:02 63 19 144/85 95 03/26/23 18:06 98.1 F 77 18 153/90 98 03/26/23 17:04 73 18 149/84 98 03/26/23 16:14 98.0 F 03/26/23 16:11 76 20 162/89 99 03/26/23 15:20 86 19 148/89 99 03/26/23 15:17 87 03/26/23 14:50 98.2 F 90 16 171/110 100 Intake and Output 03/26/23 03/27/23 03/27/23 22:59 06:59 14:59 Other: Voiding Method Toilet Toilet # Voids 1 Weight 99.337 kg Patient is a middle aged female, in no acute distress. Patient is alert awake oriented to time place and person. Speech and language functions are normal. Patient can name and repeat very well. No aphasia or dysarthria. Attention, concentration and fund of knowledge is adequate. On cranial nerve examination, pupils are equal, round and reacting to light, visual vázquez are full on confrontation, with no neglect on double simultaneous stimulation. No Kirti syndrome. Extraocular muscles are intact with no nystagmus. Face is symmetric, tongue protrudes to the midline. Palatal elevation and sensation normal, hearing and shoulder shrug normal, facial sensation normal. On muscle strength testing, there is very minimal left drift but no pronation. The muscle strength is normal in arms and legs distally and proximally, including very detailed testing of the left upper limb distally and proximally. Deep tendon reflexes are symmetric 1 at the biceps, trace brachioradialis, 1 at the knees, 0 ankles and plantars are downgoing bilaterally. Sensory to touch is equal with no neglect on double simultaneous stimulation. Cerebellar function showed no ataxia for ldgide-nx-zroa testing. No dysdiadochokinesia. No ataxia for bzgh-nl-[id number] testing on either side. Tone and bulk of muscles normal. Gait deferred.. On general examination, there is no carotid bruit or murmur, S1-S2 audible. Chest is clear on consultation. Abdomen is soft nontender. No organomegaly, bowel sounds present. Peripheral pulses are present. No peripheral edema. Results - Laboratory Findings CBC and BMP: 03/27/23 07:56 03/27/23 07:56 Abnormal Lab Findings: Abnormal Labs 03/27/23 07:56 MCHC 31.6 L Eosinophils # 0.38 H Assessment and Plan Assessment: * Subjective weakness of the left arm, and numbness of the lips, left side only, unclear cause. Rule out CVA. Patient also had left anterior axillary pain, raising concern for brachial plexus inflammation, but her examination is normal and would not explain the numbness of left side of the lips. Exact cause remains uncertain. Cardiac causes ruled out. * Hypertension * Prediabetes * Hyperlipidemia * Obesity Plan: * Patient has some atypical symptoms. Patient will undergo stroke/TIA workup. * Patient already scheduled for MRI of the brain without contrast, evaluate for acute CVA * 2-D echo revealed normal left ventricular systolic function with EF 55-60%. Mildly increased posterior wall thickness. No obvious regional wall motion abnormalities. Left atrium moderately dilated. Moderately increased basal right ventricular diameter. * Carotid Doppler, rule out stenosis * Fasting a.m. lipid panel, with cholesterol 135, LDL 65, HDL 59, triglycerides 48. Patient on Lipitor 40 mg, will continue. * Hemoglobin A1c * Optimize control of blood pressure * Patient has received aspirin 325 mg in the ER. Patient will be maintained on aspirin 81 mg daily. * Patient had a negative stress test by EKG criteria and, negative stress echo. * Neurology will continue to follow. Thank you for the consult. Addendum 4:41 PM: MRI of the brain showed no evidence of intracranial mass, acute/subacute infarct or abnormal enhancement. Nonspecific white matter changes, likely secondary to small vessel ischemic disease. I personally reviewed MRI of the brain, agree with the findings. Carotid Doppler revealed no evidence of hemodynamically significant stenosis. Antegrade flow in both vertebral arteries. Hemoglobin A1c 6.1. Neurologically clear for discharge. Recommend follow-up with neurologist for possible EMG of left upper extremity.
[2023-03-27] MEDS: ASPIRIN 81 MG PO SCH (14:33)
--- NOTE | 2023-03-27 15:45 | US ---
EXAMINATION TYPE: US carotid duplex BILAT DATE OF EXAM: 03/27/2023 Exam done portable COMPARISON: NONE CLINICAL INDICATION: Female, 57 years old with history of Left arm weakness ?CVA; TECHNIQUE: Carotid duplex ultrasound examination. Indirect Doppler criteria was utilized. FINDINGS: EXAM MEASUREMENTS: RIGHT: Peak Systolic Velocity (PSV) cm/sec ----- Right CCA: 76.7 ----- Right ICA: 91.0 ----- Right ECA: 62.2 ICA/CCA ratio: 1.2 RIGHT: End Diastole cm/sec ----- Right CCA: 20.8 ----- Right ICA: 34.9 ----- Right ECA: 3.0 LEFT: Peak Systolic Velocity (PSV) cm/sec ----- Left CCA: 77.8 ----- Left ICA: 92.5 ----- Left ECA: 74.3 ICA/CCA ratio: 1.2 LEFT: End Diastole cm/sec ----- Left CCA: 23.3 ----- Left ICA: 34.4 ----- Left ECA: 11.6 VERTEBRALS (direction of flow): Right Vertebral: Antegrade Left Vertebral: Antegrade Rhythm: Normal No significant stenosis IMPRESSION: No evidence for hemodynamically significant stenosis. Criteria for Assigning % of Stenosis / Diameter reduction (Estimation based on the indirect measurements of the internal carotid artery velocities (ICA PSV). 1. Normal (no stenosis)=ICA PSV < 125 cm/s: ratio < 2.0: ICA EDV<40 cm/s. 2. Less than 50% stenosis=ICA PSV < 125 cm/s: ratio < 2.0: ICA EDV<40 cm/s. 3. 50 to 69% stenosis=ICA PSV of 125 to 230 cm/s: ration 2.0 ? 4.0: ICA EDV 40-100 cm/s. 4. Greater than 70% stenosis to near occlusion= ICA PSV > 230 cm/s: ratio > 4.0: ICA EDV > 100 cm/s. 5. Near occlusion= ICA PSV velocities may be low or undetectable: variable ratio and ICA EDV. 6. Total occlusion=unable to detect flow.
--- NOTE | 2023-03-27 16:24 | MR ---
EXAMINATION TYPE: MR brain wo/w con DATE OF EXAM: 03/27/2023 4:01 PM CLINICAL INDICATION:Female, 57 years old with history of r/o TIA, LUE weakness resolving; PHH, LUE we akness. COMPARISON: 03/26/2023. TECHNIQUE: Multi planar, multi sequence imaging was performed through the brain including: T1, T2, In version recovery, susceptibility weighted imaging and gradient echo imaging and Diffusion weighted im aging. The patient was then given intravenous contrast and multi planar, T1 fat-saturation images wer e obtained. IV Contrast: 10 cc Gadavist FINDINGS: Ventricular dilation in proportion to cerebral atrophy. Diffusion-weighted imaging shows no evidence of restricted diffusion to suggest acute/subacute infarct. Intracranial arterial flow voids are maint ained. Midline structures show no abnormality. Scattered foci of high T2 signal intensity are seen wi thin the periventricular white matter. The susceptibility weighted images do not reveal any evidence for micro-hemorrhage. After administration of gadolinium, no abnormal enhancement is seen. The bone marrow signal is within normal limits. Paranasal sinuses and mastoid air cells: No significant paranasal sinus disease. Visualized orbits: Orbital contents are intact. IMPRESSION: 1. No evidence of intracranial mass, acute/subacute infarct, or abnormal enhancement. 2. Nonspecific white matter changes, likely related to small vessel ischemic disease.
[2023-03-27 17:05] LABS: Glucose,Whole Blood 107 mg/dL (70-110)
[2023-03-27 20:47] LABS: Glucose,Whole Blood 111 mg/dL (70-110)
[2023-03-27] MEDS: ATORVASTATIN 40 MG TAB PO SCH (22:23)
[2023-03-28 00:51] LABS: Chol/HDL Ratio 2.25 Ratio; LDL Cholesterol,Calculated 65.4 mg/dL (0.0-131.0)
[2023-03-28] MEDS: SODIUM CHLORIDE 0.9% 1,000 ML IV SCH ×2 (03:25→13:25)
[2023-03-28] MEDS: PANTOPRAZOLE 40 MG TABLET PO SCH (06:23)
--- NOTE | 2023-03-28 09:21 | P.PN ---
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 She has a past medical history of hyperlipidemia, gastroesophageal reflux disease. We have been asked to evaluate for chest pain. Patient states that she had heaviness in her chest starting in the left upper chest area went into her left arm and left hand and she states she was holding onto a month and it fell out of her hand. She's never had this sensation before. She did have chest pain about 10 years ago and was seen at [facility] and had an echocardiogram done and was discharged. She works in the grocery store lifting groceries and start in the last time was on Friday and she had no chest pain develop at the time of activity. She denies history of smoking, no alcohol use and no illicit drug use. No family history of coronary artery disease. Patient is seen today in the emergency center waiting for a bed on the observation unit. EKG no acute changes Chest x-ray: No acute findings CBC, CMP, d-dimer all within normal limits. Troponin negative 3 Home cardiac medications: Atorvastatin 40 mg at bedtime. 03/28 Patient is seen today in follow up on the OBS unit. Yesterday, patient underwent exercise stress echocardiogram but was unable to walk for over 2 minutes. Patient states this is longer than she has done in the past. She denies any chest pain at this time. Vital signs are stable. She is undergoing neurologic workup for left upper extremity weakness. Physical examination: Gen: This is a 57-year-old female. She is resting in bed and appears to be comfortable. VS: reviewed HEENT: Head is atraumatic, normocephalic. Pupils equal, round. Sclerae is anicteric. NECK: Supple. No JVD. . LUNGS: Clear to auscultation. No wheezes or rhonchi. No intercostal retractions. HEART: Regular rate and rhythm. No murmur. ABDOMEN: Soft No tenderness. EXTREMITIES: No pedal edema. No calf tenderness. NEUROLOGICAL: Patient is awake, alert and oriented x3. Assessment: Atypical chest pain with abnormal exercise tolerance Hyperlipidemia Gastroesophageal reflux disease Plan: Patient has been started on aspirin 81 mg daily, continue on atorvastatin, we will add in Imdur 30 mg daily Ambulate patient in the hallway and if she has no symptoms of chest pain or pressure, she is cleared from cardiology for discharge. Patient to follow-up with Dr. Danyel Nava in 2 weeks for additional evaluation and workup for ischemic heart disease. Nurse practitioner note has been reviewed, I agree with documented findings and plan of care. Patient was seen and examined. Objective - Vital Signs Vital signs: Vital Signs Temp 98.0 F 03/28/23 03:15 Pulse 84 03/28/23 03:15 Resp 15 03/28/23 03:15 BP 127/68 03/28/23 03:15 Pulse Ox 96 03/28/23 03:15 FiO2 Intake & Output 03/27/23 03/28/23 03/28/23 18:59 06:59 18:59 Intake Total 478 Balance 478 Intake: Oral 478 Other: Voiding Method Toilet # Voids 1 1 - Labs CBC & Chem 7: 03/27/23 07:56 03/27/23 07:56 Labs: Abnormal Lab Results - Last 24 Hours (Table) 03/26/23 03/27/23 03/27/23 Range/Units 07:56 07:56 20:46 MCHC 31.6 L (32.0-37.0) g/dL Eosinophils # 0.38 H (0.04-0.35) X 10*3/uL POC Glucose (mg/dL) 111 H (70-110) mg/dL Hemoglobin A1c 6.1 H (<=6.0) %
[2023-03-28] MEDS ORDERED: ISOSORBIDE MONONITRATE ER 30 MG TAB.ER.24H PO SCH (09:30)
[2023-03-28] MEDS: PANTOPRAZOLE 40 MG/10 ML VIAL IVP SCH (09:54)
[2023-03-28] MEDS: ASPIRIN 81 MG PO SCH (09:55)
[2023-03-28 10:49] VITALS: BP 167/94; PULSE 87; RESP 16; TEMP 97.4
[2023-03-28] MEDS ORDERED: RX INFO: IV CONTRAST WAS GIVEN 1 EACH MISC MISCELLANE PRN (12:03)
--- NOTE | 2023-03-29 13:03 | P.DS ---
Providers Date of admission: 03/26/23 16:48 Attending physician: Spring Riggins Consults: 03/26/23 18:45 Consult Physician Urgent Consulting Provider: Filipe Gregorio Consult Reason/Comments: chest pain Do you want consulting provider notified?: Yes, Notify in am 03/26/23 18:46 Consult Physician Urgent Consulting Provider: Jorge Yarbrough Consult Reason/Comments: LUE weakness, improved Do you want consulting provider notified?: Yes, Notify in am Primary care physician: Jayesh Hilario [place] [facility] Course: Final Diagnosis -Chest pain, ACS ruled out patient does have poor exercise tolerance -Left hand weakness for which patient is undergoing MRI of the head although it appears to have radiculopathy secondary to cervical degenerative disc disease -Migraine history -Lipidemia -Gastroesophageal reflux disease DVT prophylaxis: Ambulation Discharge Disposition Patient is stable for discharge home. She has been cleared by cardiology. Recommending to continue on Imdur 30 mg daily to prevent further episodes of chest discomfort. Patient is also recommended to continue naproxen as needed for migraine and to follow-up with her PCP for further discussion about migraine treatment. Patient has been started on aspirin 81 mg daily additionally recommended to continue on her Nexium daily. Hospital Course Patient is pleasant 57-year-old female mainly admitted for rule out acute causes syndromes. Patient came in with the chest pain nonexertional appears to be atypical without any lightheadedness diaphoresis patient was also complaining of cervical and thoracic spine pain as well as some pain in the left axilla and weakness in the left hand. Patient denied any tingling numbness, denied any other weakness. Neurology was consulted as well. Patient underwent stress test no abnormality was appreciated but patient didn't do well on the stress test had poor exercise tolerance. Patient had an echocardiogram which was within normal limits. Denied any smoking history. Neurology completed stroke work up, patient had carotid doppler showing no hemodynamically significant stenosis. Brain MRI with no evidence of intracranial mass, acute or subacute infarct or abnormal enhancement. There is nonspecific white matter changes likely related to small vessel ischemic disease. Lipid panel is normal electrolytes and renal function are normal D dimer is normal 0.37 and blood counts are normal. Patient has no chest pain or shortness of breath. The left hand symptoms have seemed to resolve. She has been up ambulating in the fajardo without difficulty. Lungs are clear S1-S2 auscultated abdomen soft and nontender alert 3 with no neurological deficits. Patient will be discharged home. Please see medication reconciliation for list of current medication. Thank you for allowing us to participate in the care of this patient. The impression and plan of care has been dictated by Coni Guajardo, Nurse Practitioner as directed. Dr. Elliott MD I have performed a history and physical examination and medical decision making of this patient, discussed the same with the dictator, and agree with the dictators assessment and plan as written, documented as a scribe. Based on total visit time, I have performed more than 50% of this visit. Patient Condition at Discharge: Fair Plan - Discharge Summary Discharge Rx Participant: No New Discharge Prescriptions: New Aspirin 81 mg PO DAILY #30 tab Isosorbide Mononitrate ER [Imdur] 30 mg PO DAILY #30 tab Naproxen 375 mg PO BID PRN #20 tab PRN Reason: Headache Continue Esomeprazole Magnesium [NexIUM] 20 mg PO HS Venlafaxine HCl ER [Effexor XR] 75 mg PO HS Atorvastatin [Lipitor] 40 mg PO HS Amitriptyline HCl [Elavil] 50 mg PO HS Discharge Medication List Esomeprazole Magnesium [NexIUM] 20 mg PO HS 02/23/18 [History] Amitriptyline HCl [Elavil] 50 mg PO HS 03/26/23 [History] Atorvastatin [Lipitor] 40 mg PO HS 03/26/23 [History] Venlafaxine HCl ER [Effexor XR] 75 mg PO HS 03/26/23 [History] Aspirin 81 mg PO DAILY #30 tab 03/28/23 [Rx] Isosorbide Mononitrate ER [Imdur] 30 mg PO DAILY #30 tab 03/28/23 [Rx] Naproxen 375 mg PO BID PRN #20 tab 03/28/23 [Rx] Follow up Appointment(s)/Referral(s): Jayesh Hilario MD [Primary Care Provider] - 1-2 days Jerry Nava MD [STAFF PHYSICIAN] - 2 Weeks (Office will call with apointment time and date.) Patient Instructions/Handouts: Chest Pain (DC) Activity/Diet/Wound Care/Special Instructions: Discuss with her PCP about the new medications for migraine like Nurtec Can use naproxen twice a day as needed for migraine. Continue on nexium daily. Discharge Disposition: HOME SELF-CARE
== END 2023-03-28 13:49 | disposition home or self-care (01) ==
LOC: EC 14:45 → SUPCPDRO 14:45 → 6NMEDSUR 16:48 → INTOOBSV 16:48 → 6NMEDSUR 20:01
PROVIDERS: ADMIT Hospitalist; ATTEND Hospitalist
DX: R07.89 Other chest pain (principal); R53.1 Weakness; I10 Essential (primary) hypertension; E78.5 Hyperlipidemia, unspecified; E11.9 Type 2 diabetes mellitus without complications; K21.9 Gastro-esophageal reflux disease without esophagitis; F41.9 Anxiety disorder, unspecified; G43.909 Migraine, unspecified, not intractable, without status migrainosus; Z79.82 Long term (current) use of aspirin; Z79.899 Other long term (current) drug therapy
CPT/HCPCS: 96376; 96361 ×3; 96374; 96375; 99285; 36415; 93005; 93306; 93351; 85379; 83880; 80061; 80053; 80048; 82550; 82553; 84484 ×2; 85025 ×2; 83036; 71046; 93880; 70450; 70553; G0378 ×3; J2060; J1885; C9113 ×2; A9585

== ENCOUNTER → 2024-03-08 | Outpatient (CLI) | payer BC ==
[2024-03-08 12:41] VITALS: BP 147/107; PULSE 92; RESP 18; TEMP 97.6
--- NOTE | 2024-03-08 17:39 | P.PAINPG ---
PQRS Measure Charge Sheet Comment: HISTORY OF PRESENT ILLNESS: A 58 yr old female as [facility] presents today w severe and chronic LBP > 1 yr secondary to radiculopathy, spondylosis and facet arthropathy without myelopathy for evaluation. Pt states pain level is provoked at 9 /10 in intensity, constant, localized in the lower lumbar spine, predominantly axial, sore in character w occasional shooting pain towards the BLEs. Pain is provoked by standing for periods > 15 min. Pain is alleviated by PT > 15 yrs ago, massage therapy monthly since 2022, physician guided home stretches daily since 2022, medications (Tyl, Ibu), topical BioFreeze Gel, repositioning and rest . PMH: OA, NIDDM II, GERD, HTN, Hyperlipidemia, Seasonal Allergies, Anxiety PSH: Appendectomy, L5-S1 discectomy (2005), D&C, Hysterectomy, Colonoscopy/ EGD SH: Negative x3 FH: Mo- No Reported History All: See list Meds: See list REVIEW OF ORGAN SYSTEMS: CONSTITUTIONAL: No fevers or chills. No recent weight loss. NEUROLOGICAL: + numbness and tingling along the distal extremities. No seizure disorders or headaches. MUSCULOSKELETAL: + pain PSYCHIATRIC: Denies current depression or suicidal thoughts. Physical Examinations : Constitutional : Cooperative , not in acute distress . Neurologic : Cranial nerve II to XII intact. No focal neurological deficits. Psychiatric : alert & oriented x 3. Matching mood & appropriate affect. Judgment & insight intact. Musculoskeletal : Cervical Spine Motor strength in the deltoid and biceps: Normal right side. Normal Left side Motor strength biceps and the wrist extensors: Normal right side . Normal left side Motor strength in the triceps muscle: Normal right side. Normal left side Deep tendon reflexes: Normal at the biceps. Normal at Brachioradialis. Normal at triceps Vertebral body tenderness to deep palpation over Cervical facet loading test: positive bilaterally Spurling test: positive bilaterally Neck distraction test: positive bilaterally Arnav sign: positive bilaterally Lumbar spine 2" vertical incisional scar intact Motor strength lower extremities ,thigh and legs 5/5 Right side , 5/5 Left side Deep tendon reflexes : Normal Knee Jerk. Normal Ankle Jerk Vertebral body tenderness over L5 Weiner Test positive BL L5-S1 Lumbar facet Loading Test: positive Right / positive Left Range of motion of the lumbar spine Flexion 30 degrees, extension 10 degrees Straight Leg Raise test: Left/ Right positive at degrees Miguelina test: positive right / positive left. Severe tenderness over the Sacroiliac joint on the Right / Left sides Gaenslen test: positive bilaterally Seated flexion test: positive bilaterally. Sacral spine : Severe tenderness over the Sacroiliac joint: right side / left side Range of motion: Flexion of the lumbar spine <60 degrees Range of motion: Extension of the lumbar spine <20 degrees Gaenslen's Test positive Miguelina test: positive right side / left side Thigh Thrust Test Sacral Thrust Test Imaging: X ray lumbar spine from 07/08/22 reviewed MRI non contrast lumbar spine from 01/11/24 reviewed Assessment/ Plan : Lumbar radiculopathy Recommendation of caudal JASWANT w lysis. Risks, benefits of procedure discussed and patient verbalized understanding. Admits to anti- coagulant use or medical history of diabetes. Protocol for discontinuation/ continuation of medications edgard procedure discussed. All questions answered. I have spent greater than 30 minutes on patient care today. Dr Sepulveda was available by phone for the evaluation of this patient. The time was used to review the medical records including relevant urine studies and Prescription history (MAPs), review of the available imaging, evaluation and examination of the patient, coordination of care with the medical staff and if applicable referring physicians, as well as creation of the medical record - Pain Location Lower Back Non-Pharmacological Interventions: Position/Reposition PQRS Narrative: Smoking Status Never smoker Home Medications: Ambulatory Orders Esomeprazole Magnesium [NexIUM] 20 mg PO HS 02/23/18 Amitriptyline HCl [Elavil] 50 mg PO HS 03/26/23 Atorvastatin [Lipitor] 40 mg PO HS 03/26/23 Venlafaxine HCl ER [Effexor XR] 75 mg PO HS 03/26/23 Aspirin 81 mg PO DAILY #30 tab 03/28/23 Isosorbide Mononitrate ER [Imdur] 30 mg PO DAILY #30 tab 03/28/23 diazePAM [Valium] 5 mg PO DAILY PRN 1 Days #2 tab 03/08/24 Controlled Substance Measures - Controlled Substance Measures Is patient prescribed a controlled substance at discharge?: Yes When asked, does pt state using other controlled substances?: No If prescribed controlled substance>3 days was MAPS reviewed?: Prescribed <3 Days
== END ==
LOC: PNWHC3 12:11
PROVIDERS: ATTEND Specialist
DX: M54.16 Radiculopathy, lumbar region (principal); Z88.7 Allergy status to serum and vaccine
CPT/HCPCS: 99211

== ENCOUNTER 2024-03-30 07:59 | Day surgery (SDC) | payer BC ==
[~2024-03-30 07:59] MED LIST changes: -LACTATED RINGERS 1,000 ML IV ONE; +LACTATED RINGERS 1,000 ML IV SCH; -LIDOCAINE 1% 20 ML VIAL (10MG/ML) FOR IV START INTRADERMA ONE; -LIDOCAINE 1% INJ 10MG/ML (20 ML MDV) ONE; -PROPOFOL 10 MG/ML 20 ML VIAL IV ONE
[2024-03-30 08:17] VITALS: TEMP 96.5
[2024-03-30 08:20] LABS: Glucose,Whole Blood 121 mg/dL (70-110)
[2024-03-30] MEDS ORDERED: IOPAMIDOL M200 10 ML VIAL ONE (08:49)
[2024-03-30] MEDS ORDERED: methylPREDNISolone ACETATE 80 MG/ML 1 ML VIAL ONE (08:49)
--- NOTE | 2024-03-30 09:04 | P.PCN ---
Date of Procedure: 03/30/24 Procedure(s) Performed: PREOP DIAGNOSIS: 1- Lumbar postlaminectomy syndrome. 2-lumbar radiculopathy POSTOP DIAGNOSIS:1- Lumbar postlaminectomy syndrome.2-lumbar radiculopathy PROCEDURE: 1-Caudal epidural steroid injection with epidurolysis and epidurogram under fluoroscopic guidance. (Fluoroscopy images in radiology Department ) 2-caudal epidurogram. ANESTHESIA: Adequate 1% 5 mL only EBL: Minimal. PROCEDURE INDICATION: The patient with post-laminectomy syndrome with low back pain and radiculopathy radiating down in both legs, here for a caudal epidural steroid injection with epidurolysis. PROCEDURE DESCRIPTION: The patient was seen and identified in the preoperative area. Risks, benefits, complications, and alternatives were discussed with the patient. The patient agreed to proceed with the procedure and signed the consent, and vital signs were stable. Patient was taken to the OR and time out was completed. The patient was placed in the prone position on procedure table and a pillow was placed under the abdomen to reduce lumbar lordosis. The lumbosacral area was prepped and draped in the usual sterile fashion. Vital signs were closely monitored during the procedure. lateral view and the anterior-posterior plates of the sacrum were identified with infiltration of the area overlying the sacral hiatus with 1% lidocaine .A 17 gauge RK epidural needle was used to advance through the sacral hiatus into the caudal epidural space. Omnipaque 180 dye. 2cc was injected and the position of the needle was verified to be in the midline. A Racz catheter was introduced into the epidural space and was advanced towards the L5-S1 interspace under direct fluoroscopic guidance. Multiple passes were made with the catheter for lysis of epidural adhesions. Depo-Medrol 60 mg ( preservative-free ) with 3ml of preservative free Lidocaine 1% and 5 ml of preservative free normal saline was injected slowly. Additional spread was seen to L4 under fluoroscopy. The needle and the catheter were withdrawn intact. EPIDUROGRAM: Omnipaque 180 mg dye 2 ml was injected with spread of the dye into the caudal epidural space and with spread cutoff at L5 prior to epidurolysis. Post epidurolysis dye 2 ml was injected and spread was seen to L3-4.There was further spread of the solution together with the dye above the L3 COMPLICATIONS: None. DISPOSITION / PLANS: The patient was placed in a supine position and transferred to the recovery area in a stable condition for observation and was discharged from the recovery room after meeting discharge criteria. Home discharge instructions given to the patient by the staff. The patient was reexamined prior to discharge. The patient will schedule a follow up in the clinic in 2-4 weeks.
[2024-03-30 09:11] VITALS: RESP 16
[2024-03-30 09:26] VITALS: BP 134/83; PULSE 70
--- NOTE | 2024-03-30 09:36 | FL ---
EXAMINATION TYPE: FL guided pain mgmt statistic DATE OF EXAM: 03/30/2024 FLUOROSCOPY CAUDAL EPIDURAL STEROID INJECTION, 7SEC FL TIME, [id number]. 3 images are submitted. [facility], , 03/30/2024 9:33 AM
== END 2024-03-30 09:42 | disposition home or self-care (01) ==
LOC: ORPAIN 07:59
PROVIDERS: ATTEND Specialist
DX: M96.1 Postlaminectomy syndrome, not elsewhere classified (principal); M54.16 Radiculopathy, lumbar region; Z88.7 Allergy status to serum and vaccine
CPT/HCPCS: 62264; Q9966; J1010; C1894

== ENCOUNTER → 2024-10-28 | Outpatient (CLI) | payer BC ==
[2024-10-28 14:26] VITALS: BP 145/90; PULSE 74; RESP 16; TEMP 97.6
--- NOTE | 2024-10-28 15:19 | P.SLEEP ---
History of Present Illness DATE: 10/28/2024 CONSULTATION/NEW PATIENT EVALUATION HISTORY OF PRESENT ILLNESS/SLEEP-WAKE EVALUATION: 59-year-old lady had been ev aluated in the sleep center for possible obstructive sleep apnea hypopnea syndrome. SLEEP SCHEDULE: Usually sleep schedule from 1 AM to 8 AM. Patient works at afternoon shift. FALLING ASLEEP: Sometimes patient has difficulties with falling asleep. DURING SLEEP: Usually patient sleeps on the side position with loud snoring and witnessed episodes of stop breathing during the sleep by her and during esophagogastroduodenoscopy. Positive history of grinding teeth, dry mouth, heartburn, restless leg symptoms, sweating. No history of hypnogogical hallucinations, sleep paralysis, or cataplexy. DURING THE DAY/WAKE STATE: In the morning patient wake up tired, has problems with memory, concentration, irritability, depression, anxiety. [place] sleepiness scale is significantly increased to 13. Patient takes 1 nap during the day. PAST MEDICAL HISTORY: Hypertension, migraines, anxiety, acid reflux, hyperlipidemia. PAST SURGICAL HISTORY: Total hysterectomy, appendectomy. MEDICATIONS: Please see below. SOCIAL HISTORY: Please see below. FAMILY HISTORY: Please see below. REVIEW OF SYSTEMS: Loud snoring, witnessed episodes of stop breathing during the sleep, sleepiness during the day. No fevers. No double vision. No recent chest pain. No shortness of breath. No abdominal pain. No bleeding episodes. No blood in urine. No seizure episodes. PHYSICAL EXAMINATION: GENERAL: A pleasant patient without any distress. VITAL SIGNS: Please see below, weight 239 pounds, BMI 39.7. HEENT: PERRLA, EOMI. Evaluation of oropharynx showed tongue protrudes midline, low position of soft palate Mallampati 3. NECK: Supple. No JVD. Thyroid is not palpable. 15 inches in circumference. LUNGS: Clear to percussion and to auscultation. Good air exchange. No wheezing or rhonchi. HEART: S1, S2 regular. No murmurs, gallops or rubs. ABDOMEN: Soft and nontender. Bowel sounds are present. No organomegaly appreciated. EXTREMITIES: No clubbing or cyanosis. SALON MANAGER: Awake, alert, and oriented x3. Cranial nerves 2 to 7 intact. There is no fasciculation or atrophy noted. No focal deficits observed. ASSESSMENT: 1. Loud snoring, witnessed episodes of stop breathing during the sleep, mu ltiple awakenings from sleep, low position of soft palate Mallampati 3, sleepiness with [place] Sleepiness Scale increased to 13. Obstructive sleep apnea hypopnea syndrome. 2. Obesity, BMI 39.7. 3. Hypertension. 4. Migraines. 5. Anxiety. 6 . Acid reflux. 7. Hyperlipidemia. 8. Status post total hysterectomy. 9 . Status post appendectomy. PLAN: 1. Polysomnography for evaluation of patient's breathing during sleep. 2. Following plan after reading sleep study. 3. Preferable position during sleep on the side. 4. No driving if patient feels any sleepiness. Patient is aware of civil and criminal liability for unsafe driving. 5. Sleep hygiene with regular sleep time for at least 7.5-8 hours. 6. Watching and losing weight. Thank you very much for referring this patient for consultation. Sincerely, Parminder Quezada MD, PhD, FAASM. Diplomat of [place] [employer], Sleep Medicine Board by [place] [employer] Coordinator of [facility] [place] cc: Jayesh Hilario MD Past Medical History Past Medical History: Diabetes Mellitus, GERD/Reflux, Hyperlipidemia, Hypertension Additional Past Medical History / Comment(s): seasonal allergies, no longer diabetic after wt loss History of Any Multi-Drug Resistant Organisms: None Reported Past Surgical History: Appendectomy, Back Surgery, Hysterectomy Additional Past Surgical History / Comment(s): Colonoscopy; EGD; D&C Past Anesthesia/Blood Transfusion Reactions: No Reported Reaction Past Psychological History: Anxiety Smoking Status: Never smoker Past Alcohol Use History: None Reported Past Drug Use History: None Reported - Past Family History Mother Family Medical History: No Reported History, Cancer, Hyperlipidemia, Hypertension, Osteoarthritis (OA) Additional Family Medical History / Comment(s): ANGINA Father Family Medical History: Cancer Additional Family Medical History / Comment(s): SINUS HEADACHES, SNORING Brother(s) Family Medical History: Cancer Medications and Allergies Home Medications Medication Instructions Recorded Confirmed Type Esomeprazole Magnesium [NexIUM] 20 mg PO HS 02/23/18 10/28/24 History Amitriptyline HCl [Elavil] 50 mg PO HS 03/26/23 10/28/24 History Atorvastatin [Lipitor] 40 mg PO HS 03/26/23 10/28/24 History Venlafaxine HCl ER [Effexor XR] 75 mg PO HS 03/26/23 10/28/24 History Aspirin 81 mg PO DAILY #30 tab 03/28/23 03/30/24 Rx diazePAM [Valium] 5 mg PO DAILY PRN 1 Days #2 tab 03/08/24 03/30/24 Rx Cyclobenzaprine [Flexeril] 5 mg PO TID PRN 03/24/24 10/28/24 History Metoprolol Succinate (ER) [Toprol 50 mg PO HS 03/24/24 10/28/24 History Xl] oxyBUTYnin chloride 5 mg PO DAILY 10/28/24 10/28/24 History Allergies Allergy/AdvReac Type Severity Reaction Status Date / Time Tetanus Vaccines and Toxoid Allergy Unknown Verified 03/30/24 08:08 Childhood Physical Exam Vitals: Vital Signs Temp Pulse Resp BP Pulse Ox 10/28/24 14:24 97.6 F 74 16 145/90 96 Intake and Output 10/28/24 10/28/24 10/28/24 06:59 14:59 22:59 Other: Weight 108.409 kg Sleep Note - Sleep Data ESS Total: 13 - Sleep Note Sleep Note: Temperature: 97.6 F Pulse Rate: 74 Respiratory Rate: 16 Blood Pressure: 145/90 SpO2: 96 Height: 5 ft 5 in Weight: 108.409 kg BMI: Neck Circumference: 15
== END ==
LOC: 3 N SLEEP 14:14
PROVIDERS: ATTEND Internal Medicine
DX: G47.33 Obstructive sleep apnea (adult) (pediatric) (principal); E66.9 Obesity, unspecified; I10 Essential (primary) hypertension; G43.909 Migraine, unspecified, not intractable, without status migrainosus; F41.9 Anxiety disorder, unspecified; K21.9 Gastro-esophageal reflux disease without esophagitis; E78.5 Hyperlipidemia, unspecified; Z90.49 Acquired absence of other specified parts of digestive tract; Z98.890 Other specified postprocedural states; Z68.39 Body mass index [BMI] 39.0-39.9, adult; Z88.7 Allergy status to serum and vaccine
CPT/HCPCS: 99211